=== PATIENT | male | born 1980 | race Caucasian/White ===

== ENCOUNTER 2022-05-20 20:50 | Emergency (ER) | payer MEDICAID, SELFPAY ==
[2022-05-20 20:51] VITALS: BP 147/98; PULSE 78; RESP 15; TEMP 36.7; O2SAT 98; BMI 24.5
--- NOTE | 2022-05-20 21:35 | EX.ED.DYSGE1 ---
HPI History of Present Illness Chief Complaint: Rash Narrative Narrative: 42-year-old male presenting with rash on the bilateral forearms. 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 He states he typically does not have an outbreak that this bad. He states he did climb a tree today that was covered in poison galina but has been contact with poison galina all week. He describes itching and weeping of the file forearms. No trauma. No systemic signs or symptoms. PFSH PFSH Medical History Smoker Home Medications prednisone 10 mg tablet 10 mg PO DAILY #36 tabs 05/20/22 [Rx Last Taken Unknown] Allergy/AdvReac Type Severity Reaction Status Date / Time Penicillins Allergy Rash Verified 05/20/22 20:51 Social History Smoking Status: Current every day smoker tobacco type: cigarettes ROS ROS ED Eyes Eyes: Denies blurry vision or change in vision ENT ENT ED: Denies rhinorrhea or sore throat Cardiovascular Cardiovascular: Denies chest pain or palpitations Respiratory/Chest Respiratory/Chest: Denies cough or dyspnea Gastrointestinal Gastrointestinal: Denies abdominal pain or constipation Genitourinary Genitourinary ED: Denies dysuria or hematuria Musculoskeletal Musculoskeletal: Denies arthralgias or back pain Integumentary Reports rash Neurologic Neurologic: Denies headache(s) or paresthesias Psychiatric Psychiatric: Denies anxiety or depression EXAM Physical Exam Const Vital Signs: 05/20/22 20:51 Temperature 98.1 F Temperature Source Temporal Pulse Rate 78 Respiratory Rate 15 Blood Pressure 147/98 H Blood Pressure Mean 114 Pulse Ox 98 Oxygen Delivery Method Room Air Positive well nourished General Appearance ED: NAD HEENT Reports moist mucous membranes Eyes PERRL and EOMs intact bilaterally Neck no lymphadenopathy Resp normal respiratory effort and clear to auscultation bilaterally Cardio regular rate and regular rhythm Neuro oriented x3 Sensorium / Orientation: alert Psych mental status grossly normal Skin Skin Narrative: Erythematous rash on the bilateral forearms and streaking pattern vesicles noted. There is weeping. He is nontender palpation. No secondary cellulitis noted. MDM MDM MDM Narrative Medical decision making narrative: Patient presents for evaluation of poison galina dermatitis. 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 He states he usually does not have such a bad outbreak but he is concerned this will spread. Patient was started on a prednisone taper for home. He is on the first dose in the ED. He is instructed to use calamine lotion and Benadryl as needed for itching. Patient also instructed to clean all of his tools and equipment as well as close that he wore today. Return precautions discussed. Impression: 1. Poison galina dermatitis Discharge Plan Triage Chief Complaint: Rash ED Provider: Jayden Hong Dx/Rx/DC Orders Instructions: ED Poison Galina Rash Prescriptions: New prednisone 10 mg tablet 10 mg PO DAILY Qty: 36 0RF Rx Instructions: 6 tabs p.o. daily x1 day, 5 tabs p.o. daily x2 days, 4 tabs p.o. daily x2 days, 3 tabs p.o. daily x2 days, 1 tab daily x2 days Primary Care Provider: Care Physician,No Primary Referrals: [facility] [Provider Group] - 3-5 Days Care Physician,No Primary [Primary Care Provider] - Disposition Disposition: Home, Self Care
[2022-05-20] MEDS: predniSONE 20 MG Tablet 60 MG PO (21:38)
== END 2022-05-20 21:42 | disposition home or self-care (01) ==
PROVIDERS: Emergency Provider Student in an Organized Health Care Education/Training Program; Visit Provider Student in an Organized Health Care Education/Training Program
DX: L23.7 Allergic contact dermatitis due to plants, except food (principal); F17.210 Nicotine dependence, cigarettes, uncomplicated
CPT/HCPCS: 99282